=== PATIENT | male | born 1960 | race Caucasian/White ===

== ENCOUNTER → 2016-11-27 | Outpatient (CLI) | payer OTHER | LOC: CIMAGING 09:47 | PROVIDERS: ATTEND Internal Medicine | DX: R22.1 Localized swelling, mass and lump, neck (principal) | CPT/HCPCS: 71130-PO ==

== ENCOUNTER → 2016-12-11 | Outpatient (CLI) | payer OTHER | LOC: FIMAGING 10:47 | PROVIDERS: ATTEND Internal Medicine | DX: M25.512 Pain in left shoulder (principal); M89.9 Disorder of bone, unspecified ==

== ENCOUNTER → 2017-01-05 | Outpatient (CLI) | payer OTHER | LOC: BRMIMAGING 09:17 | PROVIDERS: ATTEND Neurological Surgery | DX: Z09 Encounter for follow-up examination after completed treatment for conditions other than malignant neoplasm (principal); Z98.1 Arthrodesis status | CPT/HCPCS: 72100-PO ==

== ENCOUNTER → 2017-11-05 | Day surgery (SDC) | payer OTHER ==
[~2017-11-05] MED LIST: BUPIVACAINE 0.25% 30 ML SDV ONE; DEPO METHYLPREDNISOLONE 40 MG/ML SDV ONE
== END | disposition home or self-care (01) ==
LOC: FIMAGING 07:49
PROVIDERS: ATTEND Physician Assistant
PROC: 3E0U33Z Introduction of Anti-inflammatory into Joints, Percutaneous Approach (ICD-10-PCS; principal; 2017-11-05)
PROC: 3E0U3BZ Introduction of Anesthetic Agent into Joints, Percutaneous Approach (ICD-10-PCS; principal; 2017-11-05)
DX: M54.5 Low back pain (principal); Z98.1 Arthrodesis status
CPT/HCPCS: J1030